=== PATIENT | female | born 1985 | race Caucasian/White ===

== ENCOUNTER → 2016-12-03 20:17 | Outpatient (CLI) | payer MEDICAID ==
[2016-12-03 23:57] LABS: BASOPHILS 0.5 % (0-2); HEMATOCRIT 42.2 % (36.0-48.0); HEMOGLOBIN 13.1 g/dL (12-16); IMMATURE GRANULOCYTES 0.2 % (0-5); LYMPHOCYTES 38.3 % (15-50); MCH 27.8 pg (26.0-34.0); MCV 89.4 fL (80.0-100.0); MEAN PLATELET VOLUME 10.5 fL (7.4-10.4); MONOCYTES 6.8 % (2-11); NEUTROPHILS 53.2 % (40-80); RBC 4.72 10x6/uL (4.00-5.40); RDW 19.1 % (11.5-14.5); WBC 6.2 10x3/uL (4.8-10.8)
[2016-12-04 00:01] LABS: PLATELET COUNT 323 10x3/uL (130-400)
[2016-12-04 00:16] LABS: ALBUMIN 3.9 g/dL (3.4-5.0); ALKALINE PHOSPHATASE 77 U/L (46-116); ALT (SGPT) 18 U/L (10-68); BILIRUBIN - TOTAL 0.24 mg/dL (0.2-1.3); CALC OSMOLALITY 280 mosm/kg (275-300); CALCIUM 9.1 mg/dL (8.5-10.1); CARBON DIOXIDE 27.8 mmol/L (21.0-32.0); CHLORIDE - SERUM 102 mmol/L (98-107); CREATINE KINASE 51 UL (21-215); CREATININE - SERUM 0.7 mg/dL (0.6-1.3); POTASSIUM - SERUM 4.5 mmol/L (3.5-5.1); PROTEIN - SERUM 7.9 g/dL (6.4-8.2); SODIUM 141 mmol/L (136-145); UREA NITROGEN 20 mg/dL (7-18); eGFR NON AFRICAN AMERICAN > 90 mL/min (90-120)
[2016-12-04 00:25] LABS: GLUCOSE 53 mg/dL (74-106)
== END | disposition home or self-care (01) ==
LOC: D.LABREF 20:17
PROVIDERS: Student in an Organized Health Care Education/Training Program
DX: Z79.899 Other long term (current) drug therapy (principal); Z20.5 Contact with and (suspected) exposure to viral hepatitis; R25.2 Cramp and spasm; B39.2 Pulmonary histoplasmosis capsulati, unspecified

== ENCOUNTER 2020-01-14 19:08 | Emergency (ER) | payer MEDICAID ==
[~2020-01-14] VITALS: Ht 152.4 cm; Wt 84.1 kg
[2020-01-14] MEDS ORDERED: CIPRO500 MG PO ×2 (19:13→19:14)
[2020-01-14] MEDS ORDERED: ADDERALL XR 3030 MG PO (19:14)
[2020-01-14] MEDS ORDERED: BUPRENORPHIN-N1 EACH SL (19:14)
[2020-01-14 19:15] VITALS: Ht 152.4 cm; Wt 84.1 kg
[2020-01-14 19:49] LABS: HCG URINE NEGATIVE (NEGATIVE)
[2020-01-14 19:50] LABS: BILIRUBIN NEGATIVE (NEGATIVE); GLUCOSE NEGATIVE (NEGATIVE); KETONE NEGATIVE (NEGATIVE); NITRITE NEGATIVE (NEGATIVE); UROBILINOGEN NORMAL (NORMAL)
[2020-01-14 19:55] LABS: RED CELLS - URINE >50 /hpf (0-5)
[2020-01-14 19:56] LABS: BACTERIA FEW /hpf (NEGATIVE); EPITHELIAL CELLS 0-5 /hpf (0-5)
[2020-01-14 19:56] LABS: BASOPHILS 0.3 % (0-2); EOSINOPHILS 1.3 % (0-7); HEMATOCRIT 43.6 % (36.0-48.0); HEMOGLOBIN 14.3 g/dL (12-16); IMMATURE GRANULOCYTES 0.3 % (0-5); LYMPHOCYTES 33.7 % (15-50); MCH 30.7 pg (26.0-34.0); MCHC 32.8 g/dL (31.0-37.0); MCV 93.6 fL (80.0-100.0); MONOCYTES 6.1 % (2-11); NEUTROPHILS 58.3 % (40-80); PLATELET COUNT 235 10x3/uL (130-400); RBC 4.66 10x6/uL (4.00-5.40); RDW 13.6 % (11.5-14.5); WBC 7.8 10x3/uL (4.8-10.8)
[2020-01-14 20:06] LABS: CALC OSMOLALITY 274 mosm/kg (275-300); CALCIUM 8.8 mg/dL (8.5-10.1); CARBON DIOXIDE 30.1 mmol/L (21.0-32.0); CHLORIDE - SERUM 101 mmol/L (98-107); CREATININE - SERUM 0.7 mg/dL (0.6-1.3); POTASSIUM - SERUM 3.4 mmol/L (3.5-5.1); SODIUM 136 mmol/L (136-145); UREA NITROGEN 21 mg/dL (7-18); eGFR NON AFRICAN AMERICAN > 90 mL/min (90-120)
[2020-01-14 20:10] LABS: ALBUMIN 3.3 g/dL (3.4-5.0); ALKALINE PHOSPHATASE 81 U/L (30-120); ALT (SGPT) 20 U/L (10-68); BILIRUBIN - TOTAL 0.18 mg/dL (0.2-1.3); PROTEIN - SERUM 7.6 g/dL (6.4-8.2)
[2020-01-14 20:12] LABS: GLUCOSE 94 mg/dL (74-106)
[2020-01-14 22:33] VITALS: BP 126/56
== END 2020-01-14 22:33 | disposition home or self-care (01) ==
LOC: D.ER 19:08
PROVIDERS: Family Medicine
DX: N39.0 Urinary tract infection, site not specified (principal); R31.9 Hematuria, unspecified